=== PATIENT | female | born 1955 | race Caucasian/White ===

== ENCOUNTER 2023-04-23 17:20 | Emergency (ER) | payer MEDICARE | END 2023-04-23 19:16 | disposition home or self-care (01) | LOC: NAV ERS 17:20 | DX: S01.21XA Laceration without foreign body of nose, initial encounter (principal); S80.212A Abrasion, left knee, initial encounter; M81.0 Age-related osteoporosis without current pathological fracture; F17.200 Nicotine dependence, unspecified, uncomplicated; W10.1XXA Fall (on)(from) sidewalk curb, initial encounter | CPT/HCPCS: 12011; 70450; 72125 ==

== ENCOUNTER 2023-11-24 13:49 | Outpatient (CLI) | payer MEDICARE | END 2023-11-24 13:50 | disposition home or self-care (01) | LOC: NAV RAD 13:49 | PROVIDERS: ATTEND Family Medicine | DX: J44.9 Chronic obstructive pulmonary disease, unspecified (principal) | CPT/HCPCS: 71046 ==

== ENCOUNTER 2025-04-21 10:43 | Outpatient (CLI) | payer MEDICARE | END 2025-04-21 10:44 | disposition home or self-care (01) | LOC: NAV RAD 10:43 | PROVIDERS: ATTEND Family Medicine | DX: M25.511 Pain in right shoulder (principal); R10.A1 Flank pain, right side ==

== ENCOUNTER 2025-04-23 13:26 | Emergency (ER) | payer MEDICARE ==
[~2025-04-23 13:26] MED LIST: Iopamidol 370 76% 100 ML VIAL ONE
[2025-04-23 14:28] LABS: #Basophils 0.3 thou/uL (0.0-0.2); #Eosinophils 0.2 thou/uL (0.0-0.7); #Lymphocytes 1.6 thou/uL (1.20-3.40); #Monocytes 0.8 thou/uL (0.11-0.59); #Neutrophils 14.4 thou/uL (1.40-6.50); %Basophils 1.7 % (0.0-1.0); %Eosinophils 1.3 % (0.0-10.0); %Lymphocytes 9.2 % (21.0-51.0); %Monocytes 4.6 % (0.0-10.0); %Neutrophils 83.3 % (42.0-75.0); Hematocrit 36.9 % (36.0-47.0); Hemoglobin 12.5 g/dL (12.0-16.0); Mean Corpuscular Hemoglobin 28.3 pg (27.0-31.0); Mean Corpuscular Volume 83.3 fl (78.0-98.0); Platelet Count 446 10x3/uL (130-400); Red Blood Cell (RBC) Count 4.44 mill/uL (4.20-5.40); White Blood Cell (WBC) Count 17.3 10x3/uL (4.8-10.8)
[2025-04-23 14:30] LABS: Bicarbonate (HCO3v) 21.1 mmol/L (22.0-28.0); CO2 Tension (PvCO2) 36.4 mmHg (42.0-51.0); Calcium, Ionized 1.26 mmol/L (1.15-1.33); Chloride 108 mmol/L (98-107); Hemoglobin - Calc 12.7 g/dL (12.0-16.0); Potassium 3.7 mmol/L (3.5-5.1); Sodium 138 mmol/L (138-145); T. Carbon Dioxide 22.2 mmol/L (22.0-28.0); vO2 Saturation-calc 66.6 % (60.0-85.0)
[2025-04-23 14:39] LABS: ALT (SGPT) 20 U/L (Less than 34); AST (SGOT) 19 U/L (11-34); Albumin 3.4 g/dL (3.1-4.5); Alkaline Phosphatase 102 U/L (40-110); Anion Gap 18 mmol/L (10-20); BUN (Urea Nitrogen) 21 mg/dL (9.8-20.1); Bilirubin, Total 0.8 mg/dL (0.3-1.2); Calc. Creatinine Clearance 0 mL/min (70-130); Calcium 9.5 mg/dL (7.8-10.44); Carbon Dioxide 18 mmol/L (23-31); Chloride 106 mmol/L (98-107); Globulin 3.1 g/dL (2.4-3.5); Glucose 97 mg/dL (83-110); Potassium 4.1 mmol/L (3.5-5.1); Sodium 138 mmol/L (136-145)
[2025-04-23 14:52] LABS: Troponin I Less than 0.010 ng/mL (< 0.028)
[2025-04-23] MEDS ORDERED: cefTRIAXone (ROCEPHIN) 2 GM VIAL ONE (15:46)
[2025-04-23] MEDS ORDERED: Azithromycin 500 MG VIAL ONE (15:59)
== END 2025-04-23 18:33 | disposition short-term general hospital (02) ==
LOC: NAV ERS 13:26
DX: J15.9 Unspecified bacterial pneumonia (principal); J45.909 Unspecified asthma, uncomplicated; Z79.51 Long term (current) use of inhaled steroids
CPT/HCPCS: 71045; 71275; 80053; 82330; 82435; 82803; 83605; 83880; 84132; 84295; 84484; 85014; 85025; 85379; 93005; 94760; J0456; J0696; J3010; J7030; J7050; 96365; 96367; 96375; Q9967

== ENCOUNTER 2025-05-22 09:14 | Outpatient (CLI) | payer MEDICARE | END 2025-05-22 09:15 | disposition home or self-care (01) | LOC: NAV RAD 09:14 | PROVIDERS: ATTEND Family Medicine | DX: J40 Bronchitis, not specified as acute or chronic (principal); J98.4 Other disorders of lung | CPT/HCPCS: 71046 ==